=== PATIENT | female | born 1995 | race African-American/Black ===

== ENCOUNTER 2017-01-11 19:00 | Emergency (ER) | payer OTHER ==
[2017-05-07] MEDS ORDERED: INVEGA SUS39 MG/0.25 IM (20:26)
[2017-05-07] MEDS ORDERED: TRAZODONE HCL150 MG PO (20:26)
[2017-05-07] MEDS ORDERED: LITHOBID SR300 MG PO (20:27)
[2017-05-07] MEDS ORDERED: PLAQUENIL200 MG PO (20:28)
[2017-05-11] MEDS ORDERED: ZYVOX600 MG PO (16:01)
[2017-05-11] MEDS ORDERED: LEVAQUIN PO (16:01)
== END 2017-01-11 20:50 | disposition home or self-care (01) ==
LOC: CFTX 19:00 → CED 19:00 → CFTX 20:47
DX: L02.412 Cutaneous abscess of left axilla (principal); N60.01 Solitary cyst of right breast; E78.5 Hyperlipidemia, unspecified; F32.9 Major depressive disorder, single episode, unspecified
CPT/HCPCS: 99282

== ENCOUNTER 2017-01-26 13:00 | Inpatient (IN) | payer OTHER ==
--- NOTE | ~2017-01-26 | PN ---
Unit #: [id number] #: [id number] Patient: FAY DORANTES [id number] [facility] [address] [place] [address] [id number] I MR#: [id number] NAME: FAY DORANTES. ROOM: P252 Age: 21 Sex: F Admission Date: 01/26/2017 : 1995 Attending Physician: Wayne Ibarra M.D. Admitting Physician: Wayne Ibarra M.D. Primary Care Physician: Primary Care Physician No [facility] PROGRESS NOTES DATE 01/29/2017 DISCUSSION The patient is active within the therapeutic milieu but remains dysphoric and continues to endorse positive auditory hallucinations. She states that she has discussed possible initiation of Invega Sustenna with her therapist and Dr. Bryant's office and to this end we will begin cross titration of Seroquel and Invega in anticipation of possible initiation of Invega Sustenna. Dictated by... Wayne Ibarra M.D. CB/merle TD: 01/29/2017 10:44 JOB #: [id number] [facility] PROGRESS NOTES Page 1 of 1 X Wayne Ibarra MD X PROGRESS NOTE
--- NOTE | ~2017-01-26 | DS ---
Unit #: [id number] #: [id number] Patient: FAY DORANTES [id number] [place] [address] [id number] MR#: [id number] NAME: FAY DORANTES ROOM: [facility] Age: 21 Sex: F Admission Date: 01/26/2017 : 1995 Discharge Date: 01/30/2017 Attending Physician: Wayne Ibarra M.D. Primary Care Physician: Primary Care Physician No DISCHARGE SUMMARY REASON FOR ADMISSION The patient is a 21-year-old, , female with history of schizoaffective disorder, admitted with worsening symptoms of auditory hallucinations. HOSPITAL COURSE The patient was admitted to the [facility] unit and placed on suicide precautions. She was initially continued on previously prescribed medications. On 01/29/2017, the patient made this physician aware that she had discussed initiation of Invega Sustenna with her outpatient provider accordingly cross titration of Invega and Seroquel was initiated. On 01/30/2017, the patient was in brighter spirits and reported reduction in auditory hallucinations. She felt safe to go home and was agreeable with plan for followup in the intensive outpatient program. As per her request, discharge was ordered. FINAL DIAGNOSES Schizoaffective disorder; lupus rheumatoid arthritis; morbid obesity; hidradenitis. DISPOSITION ON DISCHARGE The patient is discharged on the following medications: Desyrel 150 mg at bedtime p.r.n. insomnia, Glucophage 1000 mg b.i.d. for diabetes mellitus, lithium 300 mg b.i.d. for mood stabilization, Plaquenil 400 mg q.a.m. for lupus, Humira 40 mg every 7 days for lupus and rheumatoid arthritis, Cleocin T gel apply b.i.d. to affected areas for hidradenitis, cabergoline every Sunday and Sunday at 8 a.m. reason unknown, Seroquel 200 mg b.i.d. for mood stabilization and psychosis, and paliperidone 3 mg daily for mood stabilization. DISCHARGE INSTRUCTIONS No dietary or physical restrictions were placed upon the patient at the time of discharge. FOLLOWUP Followup will take place through the auspices of the intensive outpatient program provided by this facility and through Dr. Bryant's office. PROGNOSIS The patient's prognosis is considered fair. Unit #: [id number] #: [id number] Patient: FAY DORANTES Dictated by... Wayne Ibarra M.D. CB/audra TD: 01/30/2017 17:36 JOB #: [id number] CC: Maxwell Bryant M.D. DISCHARGE SUMMARY Page 1 of 1 X Wayne Ibarra MD X DISCHARGE SUMMARY
--- NOTE | ~2017-01-26 | HP ---
Unit #: [id number] #: [id number] Patient: LIBBY DORANTES [id number] [place] [address] [id number] I MR#: [id number] NAME: LIBBY DORANTES. ROOM: P202 Age: 21 Sex: F Admission Date: 01/26/2017 : 1995 Attending Physician: Wayne Ibarra M.D. Admitting Physician: Wayne Ibarra M.D. Primary Care Physician: Primary Care Physician No HISTORY AND PHYSICAL HISTORY OF PRESENT ILLNESS Libby is a 21-year-old female admitted on 01/26/[address] [place] [address] for auditory hallucinations with homicidal ideation. PAST MEDICAL HISTORY History of lupus, rheumatoid arthritis, type 2 diabetes, obesity, and anemia. 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 SOCIAL HISTORY No tobacco, alcohol, or illegal drug use. She is currently single and living with her grandmother. FAMILY HISTORY Noncontributory. REVIEW OF SYSTEMS CONSTITUTIONAL: No fever or chills. HEENT: Denies any sore throat, ear pain or runny nose. CARDIOVASCULAR: Denies chest pain, irregular heart rhythm or palpitations. CHEST: Denies shortness of breath or cough. No hemoptysis. GASTROINTESTINAL: Denies nausea, vomiting, diarrhea or chronic constipation. ENDOCRINE: Denies history of increased thirst or urination. No recent significant weight loss or gain. GENITOURINARY: Denies dysuria, frequency, or hematuria. SKIN: Denies any rashes. HEMATOLOGIC: Denies history of increased bleeding or bruising. MUSCULOSKELETAL: Denies any hot, swollen joints. No generalized muscle pain. NEUROLOGIC: Denies problems with vision or speech. No frequent, severe headaches. No numbness, tingling or weakness in any extremities. Denies loss of bladder or bowel control. CURRENT MEDICATIONS Metformin, quetiapine, trazodone, and lithium. ALLERGIES No known drug allergies. Unit #: [id number] #: [id number] Patient: LIBBY DORANTES PHYSICAL EXAMINATION GENERAL: Alert, oriented, no acute distress. VITAL SIGNS: Blood pressure 142/84, heart rate 86, and temperature 99.4. HEIGHT: 5 feet 8. WEIGHT: 236 pounds. SKIN: Warm, dry. No rashes or lesions, track miller, cuts, etc. HEENT: Normocephalic. TMs not viewed. Oronasal passages clear. Conjunctivae clear. PERRLA. EOM is intact. NECK: No lymphadenopathy or thyromegaly. HEART: Regular rate and rhythm. No murmur, gallop, or rub. LUNGS: Clear to auscultation bilaterally. ABDOMEN: Soft, nontender without palpable masses or hepatosplenomegaly. : Not assessed. EXTREMITIES: No evidence of cyanosis, clubbing, or edema. Moves all extremities independently without obvious deficit. NEUROLOGICAL: Grossly within normal limits. Cranial Nerves: II: Visual holloway are intact. III, IV AND : Extraocular movements are intact. Pupils are equal, round and reactive to light. V: Facial sensation is grossly normal. VII: Facial movements and expression are normal. VIII: Auditory acuity grossly intact. IX, X: Uvula is midline. Phonation is normal. XI: Patient shrugs shoulders and turns head normally. XII: Tongue protrudes in the midline. Sensory and Motor Function: Sensory and motor sensation is grossly normal. Motor: moves all extremities well. Coordination: Gait is normal. Deep Tendon Reflexes: Intact. IMPRESSION 1. Psychiatric admission. 2. Lupus. 3. Rheumatoid arthritis. 4. Type 2 diabetes. 5. Anemia. 6. Obesity. RECOMMENDATIONS PSYCHIATRIC: Per psychiatrist. MEDICAL: No contraindication to participate in this facility's activities. MEDICAL PROGNOSIS Good. MEDICAL CONDITION Stable. Dictated by... Chao Hernández TD: 01/27/2017 11:47 JOB #: [id number] Unit #: [id number] #: [id number] Patient: LIBBY DORANTES HISTORY AND PHYSICAL Page 1 of 1 X LOPEZ BASURTO APRN HISTORY AND PHYSICAL
--- NOTE | ~2017-01-26 | PA ---
Unit #: [id number] #: [id number] Patient: FAY DORANTES [id number] [place] [address] [id number] I MR#: [id number] NAME: FAY DORANTES. ROOM: P202 Age: 21 Sex: F Admission Date: 01/26/2017 : 1995 Date of Assessment: 01/27/2017 Attending Physician: Wayne Ibarra M.D. Admitting Physician: Wayne Ibarra M.D. Primary Care Physician: Primary Care Physician No PSYCHIATRIC ASSESSMENT IDENTIFYING INFORMATION The patient is a 21-year-old female admitted with increasing auditory hallucinations and thoughts of harm to others. CHIEF COMPLAINT "I'm hearing voices telling me to hurt other people." INFORMANT(S) Patient, reliability is good. HISTORY OF PRESENT ILLNESS The patient is a 21-year-old female with a history of bipolar spectrum disorder. She was hospitalized to this facility at the age of 18 under the care of Dr. Bryant and was assigned a diagnosis of a bipolar spectrum disorder as well as posttraumatic stress disorder. At the time of her discharge, the patient was prescribed Seroquel and lithium and has continued on these medications. The patient reports, however, for the past 4 months she has been having increasing auditory hallucinations telling her to harm other people though there are no specific individual whom these voices direct her to harm. The patient reports she lives with her grandmother and younger sister. She denies any abuse of psychoactive substances. She denies recent changes in sleep or appetite. 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 The patient has multiple medical issues including lupus, rheumatoid arthritis, and hydradenitis. She is also morbidly obese. PAST PSYCHIATRIC HISTORY As noted previously, the patient was last admitted to this facility under the care of Dr. Bryant and continues followup with a nurse practitioner at Dr. Bryant's office. MEDICATIONS Hydroxychloroquine, metformin, cabergoline, quetiapine, trazodone, lithium carbonate, clindamycin, Humira, and diclofenac. ALLERGIES None reported. FAMILY HISTORY Noncontributory. SOCIAL HISTORY The patient lives with her grandmother and younger sister. There are no Unit #: [id number] #: [id number] Patient: FAY DORANTES reported abuse of alcohol, tobacco, and street drugs. 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 MENTAL STATUS EXAMINATION Examination at this time reveals the patient to be a morbidly obese female appearing her stated age. She is in no apparent physical distress at the time of the examination. She is awake, alert, and oriented in all spheres. Her mood is dysphoric, her affect blunted. Speech is generally well coherent. There are no gross deficits in memory or cognition noted. Intelligence is judged to be in the average range based on fund of knowledge. The patient is cooperative throughout the interview. She is currently denying suicidal ideation but does report positive homicidal ideation without specific targets to her threat. She continues to report command auditory hallucinations. Her judgment and insight appear to be somewhat impaired. ASSETS AND LIABILITIES The patient's assets: Motivation for change. Liabilities: Lack of resources. DIAGNOSTIC IMPRESSION 1. Bipolar disorder type 2, depressed phase, with psychotic features. 2. Morbid obesity. 3. Lupus. 4. Rheumatoid arthritis. 5. Diabetes mellitus. 6. Hydradenitis. TREATMENT PLAN The patient remains hospitalized for safety and stabilization. We will continue previously prescribed medications at this point. The patient's quetiapine, both dose is at its max, and we may need to consider a switch to an alternate second-generation antipsychotic, so her symptoms persist. We will of course check a lithium level. I will attempt to move the patient to the [address] [place] [address] Unit in a timely fashion as possible. ESTIMATED LENGTH OF STAY 5 to 7 days. Dictated by... Wayne Ibarra M.D. Joseluis TD: 01/27/2017 11:53 JOB #: [id number] Unit #: [id number] #: [id number] Patient: FAY DORANTES PSYCHIATRIC ASSESSMENT Page 1 of 1 X Wayne Ibarra MD PSYCHIATRIC ASSESSMENT
--- NOTE | ~2017-01-26 | PN ---
Unit #: [id number] #: [id number] Patient: FAY DORANTES [id number] [facility] [address] [place] [address] [id number] I MR#: [id number] NAME: FAY DORANTES. ROOM: P252 Age: 21 Sex: F Admission Date: 01/26/2017 : 1995 Attending Physician: Wayne Ibarra M.D. Admitting Physician: Wayne Ibarra M.D. Primary Care Physician: Primary Care Physician Nella SHUKLA PROGRESS NOTES DATE 01/28/2017 DISCUSSION The patient seen continues to complain of auditory hallucinations of a command type but seems a bit less dysphoric and when seen today she seems to be adjusting to the inpatient setting well and I have spoken with her today regarding post discharge options including intensive outpatient program. At this point she is on adequate doses of her prescribed medications and I am not looking at this point to make any extreme medication changes. Dictated by... Wayne Ibarra M.D. CB/merle TD: 01/29/2017 00:50 JOB #: [id number] [facility] PROGRESS NOTES Page 1 of 1 X Wayne Ibarra MD X PROGRESS NOTE
[2017-01-28 11:31] LABS: URINE SOURCE CLEAN CATCH
[2017-01-28 11:46] LABS: URINE APPEARANCE TURBID; URINE BILIRUBIN NEG (NEG); URINE BLOOD NEG (NEG); URINE COLOR DK YELLOW; URINE GLUCOSE NEG (NEG); URINE KETONE TRACE (NEG); URINE LEUKOCYTE ESTERASE 2+ (NEG); URINE NITRATE NEG (NEG); URINE PH 5.5 (5-8); URINE PROTEIN 1+ (NEG)
[2017-01-28 11:51] LABS: URBCS1 AUWI 0-2 /[HPF] (0-2); URINE BACTERIA AUWI 2+ (NEGATIVE); URINE SQUAMOUS EPITHELIAL CELL FEW /[HPF]; UWBCS1 AUWI 25-50 (0-5)
[2017-01-28 12:06] LABS: URINE YEAST PRESENT
[2017-01-28 12:25] LABS: AMPHETAMINE NEG (NEG); BARBITURATES NEG (NEG); BENZODIAZEPINES NEG (NEG); COCAINE NEG (NEG); MARIJUANA NEG (NEG); OPIATES NEG (NEG); TRICYCLIC ANTIDEPRESSANTS POS (NEG); U METHADONE NEG (NEG)
[2017-01-30 12:22] LABS: BASOPHIL% 0.4 % (0-2.5); EOSINOPHIL# 0.2 X10e3 (0-0.7); EOSINOPHIL% 2.7 % (0.0-7.0); HEMATOCRIT 37.6 % (35.0-45.0); HEMOGLOBIN 11.9 gm/dL (12.0-16.0); LYMPHOCYTE# 3.6 X10e3 (1.0-3.5); LYMPHOCYTE% 53.6 % (17.0-45.0); MEAN CELL VOLUME 88.5 FL (83-96); MEAN CORPUSCULAR HGB CONC 31.6 g/dL (30-36); MEAN PLATELET VOLUME 9.2 FL (6.5-11.5); MONOCYTE# 0.9 X10e3 (0-1.0); MONOCYTE% 12.5 % (3.0-12.0); NEUTROPHIL# 2.1 X10e3 (1.5-7.1); NEUTROPHIL% 30.8 % (40-75); PLATELET COUNT 238 X10e3 (140-420); RED BLOOD COUNT 4.25 X10e (3.90-5.30); WHITE BLOOD COUNT 6.8 X10e3 (4.0-10.5)
[2017-01-30 12:23] LABS: DIFF IND YES
[2017-01-30 12:51] LABS: ANISOCYTOSIS SL; PLATELET ESTIMATE NORMAL (NORMAL)
[2017-01-30 13:36] LABS: ALBUMIN SERUM 3.7 g/dL (3.5-5.0); BILIRUBIN,TOTAL 0.5 mg/dL (0.2-2.0); BUN/CREATININE RATIO 12.5; CALCIUM SERUM 9.4 mg/dL (8.4-10.2); CREATININE SERUM 0.8 mg/dL (0.6-1.4); POTASSIUM 4.3 mmol/L (3.5-5.1); PROTEIN TOTAL SERUM 7.5 g/dL (6.0-8.3)
[2017-05-07] MEDS ORDERED: TRAZODONE HCL150 MG PO (20:26)
[2017-05-07] MEDS ORDERED: INVEGA SUS39 MG/0.25 IM (20:26)
[2017-05-07] MEDS ORDERED: LITHOBID SR300 MG PO (20:27)
[2017-05-07] MEDS ORDERED: PLAQUENIL200 MG PO (20:28)
[2017-05-11] MEDS ORDERED: ZYVOX600 MG PO (16:01)
[2017-05-11] MEDS ORDERED: LEVAQUIN PO (16:01)
== END 2017-01-30 15:30 | disposition home or self-care (01) | DRG 885 ==
LOC: P2L 16:18 → P2S 16:18 → P2L 01-27 19:11
PROVIDERS: Specialist
DX: F25.9 Schizoaffective disorder, unspecified (principal); M32.9 Systemic lupus erythematosus, unspecified; E11.9 Type 2 diabetes mellitus without complications; M06.9 Rheumatoid arthritis, unspecified; E66.9 Obesity, unspecified; L73.2 Hidradenitis suppurativa; D64.9 Anemia, unspecified
CPT/HCPCS: 80053; 80178; 80307; 81003; 82947; 84703; 85025